=== PATIENT | female | born 1960 | race Caucasian/White ===

== ENCOUNTER 2024-12-04 22:23 | Emergency (ER) | payer OTHER, SELFPAY ==
[2024-12-04 22:24] VITALS: BP 142/88
[2024-12-04 22:52] LABS: % Immature Granulocytes 0.3 % (0-0.5); % Lymphocytes 35.8 % (20.5-51.1); % Monocytes 19.7 % (1.7-9.3); % Neutrophils 42.2 % (42.2-75.2); Absolute Basophils 0.1 10^3/uL (0-0.2); Absolute Eosinophils 0.1 10^3/uL (0-0.7); Absolute Lymphocytes 2.2 10^3/uL (1.2-3.4); Absolute Monocytes 1.2 10^3/uL (0.1-0.6); Absolute Neutrophils 2.6 10^3/uL (1.4-6.5); Hematocrit 42.6 % (37.0-47.0); Hemoglobin 14.9 g/dL (12.0-16.0); Mean Corpuscular Hgb 33.7 pg (27.0-31.0); Mean Corpuscular Volume 96.4 fL (81.0-99.0); Mean Platelet Volume 8.6 fL (7.4-10.4); Nucleated Red Blood Cells % 0 %; Platelet Count 232 10^3/uL (130-400); Red Blood Cell Count 4.42 10^6/uL (4.20-5.40); Red Cell Dist. Width 12.5 % (11.5-14.5)
[2024-12-04 23:07] LABS: COVID-19 Antigen Negative (Negative)
[2024-12-04 23:08] LABS: ALT (SGPT) 158 U/L (0-35); AST (SGOT) 235 U/L (14-36); Alkaline Phosphatase 134 U/L (38-126); Blood Urea Nitrogen 13 mg/dl (7-17); Calcium 9.6 mg/dl (8.4-10.2); Carbon Dioxide 27 mmol/L (22-30); Chloride 103 mmol/L (98-107); Glucose 115 mg/dl (70-99); Sodium 142 mmol/L (135-145); Total Bilirubin 0.9 mg/dl (0.2-1.3); Total Protein 7.5 g/dl (6.3-8.2); eGFR > 60.00
[2024-12-04 23:10] LABS: Troponin I < 0.012 ng/ml
[2024-12-04 23:38] VITALS: BP 131/75
[2024-12-04 23:58] VITALS: BMI 24.8
[2024-12-04 23:59] VITALS: BP 131/75
[2024-12-05] VITALS: BP 121/83
--- NOTE | 2024-12-05 00:16 | ED.GENMED ---
History of Present Illness
General
Chief Complaint: Chest Problem
Time Seen by Provider: 12/05/24 00:11
History of Present Illness
History of Present Illness:
Patient is a 63-year-old woman with history of AML, reflux presenting to the emergency with chest pain. Patient states that this morning she woke up with right-sided chest pain under her breast. It is pleuritic. No nausea vomiting. No
hemoptysis. No leg swelling. No long car rides or plane rides. No history of blood clots. No fevers or chills. No URI symptoms. This never happened to her before.
Past History
Past History
ED Past Medical History: Cancer (Leukcemia AML) and Other (Ulcers, barrets esophagus, Subarachnoid Hemorrhage, Concussion)
ED Past Surgical History: Cholecystectomy
Social History
Tobacco: Non-smoker
Alcohol: Occasional
Personal:
Living: with family
Phy Exam
Physical Exam
Physical Exam:
GENERAL: in no acute distress
HEENT: normocephalic, extraocular movements intact, moist oral mucosa
NECK: normal inspection
RESPIRATORY: no respiratory distress, clear to auscultation bilaterally
CARDIOVASCULAR: regular rate and rhythm
ABDOMEN/: soft, non-distended, non-tender to palpation, no rebound or guarding
EXTREMITIES: non-tender, no edema/swelling
NEUROLOGIC: awake and alert, moves all extremities
SKIN: warm
Course
Orders/Labs/Results
Orders:
Orders
12/04/24 22:29
Electrocardiogram (*1) Urgent
Reason for Study: Chest Pain
EKG- Treatment ONCE
12/04/24 22:36
COVID-19 Antigen Urgent
Source: Nasal Swab
Influenza A+B Rapid Molecular Urgent
JOSÉ MIGUEL Source: Nasal Swab
Specimen Description:
12/04/24 22:39
Complete Blood Count/With Diff Urgent
Comprehensive Metabolic Panel Urgent
Troponin I Urgent
12/05/24 00:06
CXR2 [CR Chest - 2 Views ] Urgent
Comment:
Reason For Exam: right chest pain, worse with deep breathing
12/05/24 00:31
D-Dimer Urgent
12/05/24 01:29
CT Chest PE Study Urgent
Comment:
Reason For Exam: positive dimer
Abnormal Lab Results
12/04/24 12/05/24
22:39 00:31
MCH 33.7 H pg
(27.0-31.0)
Absolute Monos (auto) 1.2 H 10^3/uL
(0.1-0.6)
Monocytes % 19.7 H %
(1.7-9.3)
D-Dimer 0.74 H ug/mlFEU
(0.00-0.50)
Glucose 115 H mg/dl
(70-99)
AST 235 H U/L
(14-36)
ALT 158 H U/L
(0-35)
Alkaline Phosphatase 134 H U/L
(38-126)
12/04/24 22:39
12/04/24 22:39
Vital Signs
Initial and Last Documented VS:
Initial Vital Signs
Temp Pulse Resp BP Pulse Ox
97.5 F 94 16 142/88 100
12/04/24 22:24 12/04/24 22:24 12/04/24 22:24 12/04/24 22:24 12/04/24 22:24
Last Documented Vital Signs
Temp Pulse Resp BP Pulse Ox
97.5 F 85 18 131/75 98
12/04/24 22:24 12/04/24 23:59 12/04/24 23:59 12/04/24 23:59 12/04/24 23:59
MDM/Problems Addressed
Differential Diagnosis Includes:
Patient is a 63-year-old woman with history of AML presenting to the emergency department with pleuritic chest pain for the past day. Vitals unremarkable and exam is reassuring. Differential consists of MSK pain versus PE. Patient cannot be
perked out so will obtain dimer. Otherwise blood work is unremarkable. She does have transaminitis. She does state that she drinks alcohol. Will have patient follow-up with her primary care doctor as well as GI for repeat liver function tests.
EKG per my interpretation normal sinus rhythm. Will obtain chest x-ray.
*Critical Care Note
Total Time (30-74mins, 75-104mins- exclusive of procedures): Not Applicable
Update Note
Update Note:
Chest x-ray per my interpretation without any obvious infiltrate. Dimer is positive. Will proceed with CT PE. Patient signed out to oncoming attending pending CT PE study.
ED Attending Note
-
Portions of this chart may have been created with voice recognition software.� Occasional wrong word or��sound alike� substitutions may have occurred due to the inherent limitations of voice recognition software.
Discharge Plan
Departure
Discharge Problem:
Transaminitis
Prescriptions:
No Action
alprazolam 1 MG tablet
1 mg PO DAILY
pantoprazole 40 MG tablet,delayed release (DR/EC)
40 mg PO DAILY
fluoxetine 20 MG capsule
40 mg PO DAILY
bupropion HCl 200 MG tablet sustained-release 12 hr
150 mg PO DAILY
Referrals:
Betsy Michaud MD [Family Provider] -
Activity Restrictions/Additional Instructions:
You were seen in the Emergency Department today for chest pain. While you were here we performed blood work, which did show elevated liver function test. Please stop drinking alcohol and please follow-up with your primary care doctor to have your
blood work repeated in about a week.
We would like for you to follow up with your primary care physician for further evaluation. If you experience fever, worsening of your symptoms, or develop any other new or concerning symptoms, please return to the Emergency Department immediately.
Please see the attached sheet for additional information.
Interventions
Interventions:
*Risk Screen - Suicide Last Done: 12/04/24 22:24
*General Assessment Last Done: 12/05/24 00:03
*Neglect/Abuse Screening Last Done: 12/04/24 22:24
*ED COVID-19 Vaccine History Last Done: 12/04/24 23:59
ED- Cardiac Assessment Last Done: 12/05/24 00:01
ED- Pulmonary Assessment Last Done: 12/05/24 00:01
Discharge Date and Time
Print Language: KYRGYZ
[2024-12-05 01:00] VITALS: BP 128/73
[2024-12-05 01:26] LABS: D-Dimer 0.74 ug/mlFEU (0.00-0.50)
[2024-12-05 02:00] VITALS: BP 129/81
[2024-12-05 02:28] VITALS: BP 129/81
[2024-12-05] MEDS: TORADOL 15 MG IV (02:29)
[2024-12-05 03:00] VITALS: BP 132/77
--- NOTE | 2024-12-05 03:23 | ED.GENMED ---
History of Present Illness
General
Chief Complaint: Chest Problem
Time Seen by Provider: 12/05/24 00:11
Past History
Past History
ED Past Medical History: Cancer (Leukcemia AML) and Other (Ulcers, barrets esophagus, Subarachnoid Hemorrhage, Concussion)
ED Past Surgical History: Cholecystectomy
Social History
Tobacco: Non-smoker
Alcohol: Occasional
Personal:
Living: with family
Course
Orders/Labs/Results
Orders:
Orders
12/04/24 22:29
Electrocardiogram (*1) Urgent
Reason for Study: Chest Pain
EKG- Treatment ONCE
12/04/24 22:36
COVID-19 Antigen Urgent
Source: Nasal Swab
Influenza A+B Rapid Molecular Urgent
JOSÉ MIGUEL Source: Nasal Swab
Specimen Description:
12/04/24 22:39
Complete Blood Count/With Diff Urgent
Comprehensive Metabolic Panel Urgent
Troponin I Urgent
12/05/24 00:06
CXR2 [CR Chest - 2 Views ] Urgent
Comment:
Reason For Exam: right chest pain, worse with deep breathing
12/05/24 00:31
D-Dimer Urgent
12/05/24 01:29
CT Chest PE Study Urgent
Comment:
Reason For Exam: positive dimer
12/05/24 02:24
Ketorolac [Toradol] 15 mg .ROUTE .STK-MED ONE
12/05/24 02:27
Ketorolac [Toradol] 15 mg IV NOW STA
Abnormal Lab Results
12/04/24 12/05/24
22:39 00:31
MCH 33.7 H pg
(27.0-31.0)
Absolute Monos (auto) 1.2 H 10^3/uL
(0.1-0.6)
Monocytes % 19.7 H %
(1.7-9.3)
D-Dimer 0.74 H ug/mlFEU
(0.00-0.50)
Glucose 115 H mg/dl
(70-99)
AST 235 H U/L
(14-36)
ALT 158 H U/L
(0-35)
Alkaline Phosphatase 134 H U/L
(38-126)
12/04/24 22:39
12/04/24 22:39
Vital Signs
Initial and Last Documented VS:
Initial Vital Signs
Temp Pulse Resp BP Pulse Ox
97.5 F 94 16 142/88 100
12/04/24 22:24 12/04/24 22:24 12/04/24 22:24 12/04/24 22:24 12/04/24 22:24
Last Documented Vital Signs
Temp Pulse Resp BP Pulse Ox
97.8 F 73 18 132/77 97
12/05/24 03:00 12/05/24 03:00 12/05/24 03:00 12/05/24 03:00 12/05/24 03:00
Update Note
Update Note:
IMPRESSION:
No pulmonary embolus. Technically adequate study. No thoracic aneurysm or dissection.
Scattered bilateral groundglass opacities, which may be due to an especially phase scan. No consolidation, effusion, or pneumothorax.
Heart size within normal limits. No pericardial effusion. Mild esophageal wall thickening, which may be due to esophagitis or recent vomiting.
Prior cholecystectomy. Moderate hepatic steatosis.
ED Attending Note
-
Portions of this chart may have been created with voice recognition software.� Occasional wrong word or��sound alike� substitutions may have occurred due to the inherent limitations of voice recognition software.
Discharge Plan
Departure
Patient Disposition: Home (Routine Discharge)
Date of Disposition: 12/05/24
Time of Disposition: 03:23
Patient with high blood pressure during this ER visit?: No
Condition: Fair
Discharge Problem:
Transaminitis
Instructions: Chest Pain PCP Follow Up, BLOOD PRESSURE
Prescriptions:
No Action
alprazolam 1 MG tablet
1 mg PO BID
pantoprazole 40 MG tablet,delayed release (DR/EC)
40 mg PO DAILY
fluoxetine 20 MG capsule
40 mg PO DAILY
bupropion HCl 200 MG tablet sustained-release 12 hr
150 mg PO DAILY
simvastatin 5 mg Tablet
5 mg PO DAILY
lisdexamfetamine [Vyvanse] 40 mg Capsule
40 mg PO DAILY
valsartan 320 mg Tablet
320 mg PO DAILY
Referrals:
Betsy Michaud MD [Family Provider] -
Activity Restrictions/Additional Instructions:
You were seen in the Emergency Department today for chest pain. While you were here we performed blood work, which did show elevated liver function test. Please stop drinking alcohol and please follow-up with your primary care doctor to have your
blood work repeated in about a week.
We would like for you to follow up with your primary care physician for further evaluation. If you experience fever, worsening of your symptoms, or develop any other new or concerning symptoms, please return to the Emergency Department immediately.
Please see the attached sheet for additional information.
Interventions
Interventions:
*Risk Screen - Suicide Last Done: 12/04/24 22:24
*General Assessment Last Done: 12/05/24 00:03
*Neglect/Abuse Screening Last Done: 12/04/24 22:24
*ED COVID-19 Vaccine History Last Done: 12/04/24 23:59
ED- Cardiac Assessment Last Done: 12/05/24 03:09
ED- Pulmonary Assessment Last Done: 12/05/24 03:09
Discharge Date and Time
Print Language: BULGARIAN
[2024-12-05 03:55] VITALS: BP 146/94
== END 2024-12-05 04:08 | disposition home or self-care (01) ==
LOC: EMR 22:23
PROVIDERS: Student in an Organized Health Care Education/Training Program; EMERGENCY PHYSICIAN Student in an Organized Health Care Education/Training Program; FAMILY PHYSICIAN Family Medicine
DX: R07.89 Other chest pain (principal); C92.00 Acute myeloblastic leukemia, not having achieved remission; K21.9 Gastro-esophageal reflux disease without esophagitis; Z90.49 Acquired absence of other specified parts of digestive tract
CPT/HCPCS: 99284; 71046; 71275; 80053; 84484; 85025; 85379; 87502; 87811; 93005; Q9967